=== PATIENT | male | born 1955 | race Caucasian/White ===

== ENCOUNTER 2018-07-26 14:08 | Emergency (ER) | payer OTHER ==
[~2018-07-26] VITALS: Ht 182.9 cm; Wt 79.4 kg
[2018-07-26] MEDS ORDERED: IOHEXOL 300MG/ML 100 ML INFUS..BTL IV ONE (14:11)
[2018-07-26] MEDS ORDERED: HYDROMORPHONE 1 MG/1 ML DISP.SYRIN IV ONE (14:15)
[2018-07-26] MEDS ORDERED: ONDANSETRON 4 MG/2 ML VIAL IV ONE (14:15)
[2018-07-26] MEDS ORDERED: ONDANSETRON 4 MG/2 ML VIAL ONE (14:19)
[2018-07-26] MEDS ORDERED: HYDROMORPHONE 1 MG/1 ML DISP.SYRIN ONE (14:19)
[2018-07-26 14:28] LABS: BASOPHILS # (AUTO) 0.1 K/uL (0.0-8.0); EOSINOPHILS # (AUTO) 0.1 K/uL (0.0-0.7); EOSINOPHILS % (AUTO) 1.6 % (0.0-7.0); HEMATOCRIT 43.8 % (36.7-47.1); HEMOGLOBIN 15.1 g/dL (12.5-16.3); LYMPHOCYTES # (AUTO) 1.6 K/uL (20.0-40.0); LYMPHOCYTES % (AUTO) 30.3 % (20.5-51.5); MEAN CORPUSCULAR HEMOGLOBIN 32.1 uug (23.8-33.4); MEAN CORPUSCULAR HGB CONC 34 g/dL (32.5-36.3); MEAN CORPUSCULAR VOLUME 93.3 fL (73.0-96.2); MONOCYTES # (AUTO) 0.2 K/uL (2.0-10.0); MONOCYTES % (AUTO) 3.7 % (0.0-11.0); NEUTROPHILS # (AUTO) 3.4 K/uL (1.8-8.9); NEUTROPHILS % (AUTO) 63.4 % (38.5-71.5); PLATELET COUNT (AUTO) 183 K/uL (152-348); RED BLOOD CELL COUNT(AUTO) 4.69 MIL/uL (4.06-5.63); WHITE BLOOD COUNT (AUTO) 5.4 K/uL (3.6-10.2)
[2018-07-26 14:41] LABS: BILIRUBIN,DIRECT 0.1 mg/dL (0.0-0.2); BILIRUBIN,TOTAL 0.7 mg/dL (0.2-1.0); CREATININE 1.1 mg/dL (0.6-1.3); POTASSIUM 4.3 mmol/L (3.5-5.1); TOTAL PROTEIN, SERUM 6.7 g/dL (6.4-8.2)
[2018-07-26] MEDS ORDERED: TRAZ-182 PO (14:44)
[2018-07-26] MEDS ORDERED: PROP20TA7 PO (14:44)
[2018-07-26] MEDS ORDERED: SWABABLE VALVE TRANSFER SET EA MC ONE (14:49)
[2018-07-26] MEDS ORDERED: HYDROCORTISONE SOD SUCCINATE 250 MG/2 ML ML ONE (14:49)
[2018-07-26] MEDS ORDERED: IV NORMAL SALINE 250 ML IV ONE (14:49)
[2018-07-26] MEDS ORDERED: NORMAL SALINE FLUSH 10 ML DISP.SYRIN ONE (14:49)
[2018-07-26] MEDS ORDERED: METRONIDAZOLE 500 MG TABLET PO ONE (16:15)
[2018-07-26] MEDS ORDERED: CIPROFLOXACIN HCL 250 MG TABLET PO ONE (16:15)
[2018-07-26] MEDS ORDERED: CIPROFLOXACIN HCL 250 MG TABLET ONE (16:46)
[2018-07-26] MEDS ORDERED: METRONIDAZOLE 500 MG TABLET ONE (16:47)
--- NOTE | 2018-07-26 16:50 | NUR ---
IV removed from R Wrist. Catheter intact and site benign. Pressure and 4x4 gauze applied to site. No bleeding noted.
--- NOTE | 2018-07-26 17:04 | NUR ---
Patient discharged to home in stable conditon. Written and verbal after care instructions given. Patient verbalizes understanding of instructions.
== END 2018-07-26 17:00 | disposition home or self-care (01) ==
LOC: ER 14:10
DX: K57.92 Diverticulitis of intestine, part unspecified, without perforation or abscess without bleeding (principal); K21.9 Gastro-esophageal reflux disease without esophagitis; Z90.49 Acquired absence of other specified parts of digestive tract; Z88.8 Allergy status to other drugs, medicaments and biological substances
CPT/HCPCS: 36415; 74177; 80048; 80076; 83690; 85025; 85730; 93005; 96374; 96375; 99285; J1170; J1720; J2405; Q9967; A4663; J3490; J7050